=== PATIENT | male | born 1980 | race Caucasian/White ===

== ENCOUNTER 2016-08-25 09:43 | Inpatient (IN) | payer MEDICARE, OTHER ==
--- NOTE | ~2016-08-25 | CT4 ---
[facility] A Service of [facility] RADIOLOGY TEXT RESULTS PATIENT: LEXX HAND JR [address] : [birth year] UNIT #: [id number] AGE: [address]: Sharon Slade MD SEX: M ORDER DR: [id number] [facility] [address] [facility]. [place], [place] [address] [id number] I MR#: [id number] Acc #: [id number] NAME: LEXX HAND JR : 1980 SEX: M STUDY DATE/TIME: 08/25/2016 11:01 UNIT: [facility] ROOM: [facility] STUDY DESCRIPTION: CT Abd and Pelv Wo Cont Attending Physician: Ashley Anderson M.D. Ordering Physician: Cameron Lima M.D. MEDICAL IMAGING REPORT This report is preliminary unless electronic signature is present EXAM CT of the abdomen and pelvis without contrast media HISTORY Confusion. Rectal bleeding. Shortness of breath beginning today. TECHNIQUE Transaxial imaging of the abdomen and pelvis was performed without contrast media. This CT exam was performed with one or more of the following radiation dose reduction techniques: automatic exposure control, adjustment of mA and/or kV according to patient size, and iterative reconstruction. COMPARISON STUDIES The study is directly compared to the most recent examination of 07/07/2006. FINDINGS Scans through the lung bases show an infiltrate in the left lower lobe. Patient has ascites. The liver has a cirrhotic morphology with hypertrophy of the left lobe. The spleen is enlarged. The pancreas in the patient is normal. Adrenal glands are normal. Both kidneys are normal. There are multiple dilated veins over the anterior abdominal wall. There is recanalization of the umbilical vein. Pancreas has a normal appearance. There is some thickening of the right colon wall. There is ascites in the pelvis. Hinds catheter is in the bladder. There is moderate soft tissue anasarca. CONCLUSION 1. Left lower lobe infiltrate. 2. Morphologic changes of cirrhosis with portal hypertension. [facility] A Service of [facility] RADIOLOGY TEXT RESULTS PATIENT: LEXX HAND JR LOCATION: [facility]ICCU3-19 : [birth year] UNIT #: [id number] AGE: [address]: Sharon Slade MD SEX: M ORDER DR: is splenomegaly and there is recanalization of the umbilical vein and there is a large volume of ascites. 3. Diffuse soft tissue anasarca. 4. Right-sided colon wall thickening, likely related to the ascites and hypoproteinemia. 5. Relatively dense gallbladder which may represent stones or super saturation of bile. Dictated by... Max Ozuna M.D. THIS IS AN ELECTRONICALLY VERIFIED REPORT Max Ozuna M.D. at 08/29/2016 7:21 AM SHYANN/adria TD: 08/25/2016 23:31 JOB #: [id number] MEDICAL IMAGING REPORT Page 1 of 1 COPY
--- NOTE | ~2016-08-25 | TOC ---
Unit #: [id number] #: [id number] Patient: LEXX HAND JR [id number] [place] [address] [id number] I MR#: [id number] NAME: LEXX HAND JR ROOM: [facility] Age: 36 Sex: M Admission Date: 08/25/2016 : 1980 Attending Physician: Sharon Slade M.D. Referring Physician: Self Referral-Refer Use Only Primary Care Physician: No Primary Care Physician TRANSFER OF CARE SUMMARY DISCHARGE DIAGNOSES 1. Acute hypoxic respiratory failure. 2. Change in mental status secondary to hepatic encephalopathy. 3. 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 4. Cirrhosis secondary to alcohol. 5. Severe jaundice secondary to end-stage liver disease. 6. Hypovolemic shock. 7. Severe anemia secondary to acute blood loss. 8. Gastrointestinal bleed. 9. Hepatic encephalopathy. 10. Sepsis. 11. Possible spontaneous bacterial peritonitis. 12. Hypokalemia. 13. Coagulopathy secondary to liver failure. 14. Attention deficit hyperactivity disorder. 15. Acute kidney injury. The patient is not a candidate for dialysis as per Nephrology due to advanced liver disease. 16. Mild hyponatremia. 17. Hypokalemia. 18. Metabolic acidosis. 19. Hypocalcemia. 20. Severe protein malnutrition. 21. Transaminitis. 22. Abnormal thyroid stimulating hormone of 0.12. CONSULTATIONS Dr. Rueda and Dr. Bhakta. PROCEDURES None. LABORATORY DATA Hemoglobin 7.0. Sputum cultures are pending. Chest x-ray shows bilateral infiltrates. WBC 6.9, hemoglobin 6.5, platelets 74, ammonia 114. INR 1.9. Sodium 136, potassium 2.8, creatinine 2.0, CO2 18, AST 63, ALT 35, alkaline phosphatase 90, total bilirubin 25.7, albumin 1.7, phosphorous 3.9, magnesium 2.0. ABG: pH 7.45, CO2 27, oxygen 150. HOSPITALIZATION COURSE A 36-year-old with severe end-stage liver disease admitted because of change in mental status. Currently, the patient is intubated and sedated. I discussed in detail with the father. Dr. Rueda and Dr. Bhakta discussed Unit #: [id number] #: [id number] Patient: LEXX HAND JR with the father. The patient, because of end-stage liver disease and hepatorenal syndrome, who is not a candidate for dialysis secondary to end-stage renal disease, is very sick and a very poor prognosis. Father agrees for terminal extubation. The patient will be terminally extubated today as per family and father request. Very poor prognosis, discussed with the father for terminal extubation today, discussed with Dr. Rueda. Dictated by... Daynaa Coronado/damion TD: 08/26/2016 13:46 JOB #: [id number] TRANSFER OF CARE SUMMARY Page 1 of 1 X Sharon Slade MD X TRANSFER OF CARE SUMMARY
--- NOTE | ~2016-08-25 | CR6 ---
[facility] A Service of [facility] & [facility] RADIOLOGY TEXT RESULTS PATIENT: LEXX HAND JR LOCATION: [address]19 : [birth year] UNIT #: [id number] AGE: [address]: Sharon Slade MD SEX: M ORDER DR: [id number] [facility] [address]. [place], [place] [address] [id number] I MR#: [id number] Acc #: [id number] NAME: LEXX HAND JR : 1980 SEX: M STUDY DATE/TIME: 08/25/2016 17:14 UNIT: [facility] ROOM: [facility] STUDY DESCRIPTION: CR Abdomen Portable Sng View Attending Physician: Ashley Anderson M.D. Ordering Physician: Ar Moody M.D. MEDICAL IMAGING REPORT This report is preliminary unless electronic signature is present EXAM Portable abdomen HISTORY Dobbhoff tube placement. FINDINGS Portable view of the abdomen demonstrates a weighted tip of the Dobbhoff feeding tube about 18 cm below the GE junction with the distal tip in the expected mid to distal stomach. Further advancement about 10 cm to 15 cm may allow more optimal distal gastric and small bowel placement. Nonspecific bowel gas pattern with some increased colonic gas. Dictated by... Eleni Guidry M.D. THIS IS AN ELECTRONICALLY VERIFIED REPORT Eleni Guidry M.D. at 08/26/2016 6:36 PM Danny TD: 08/25/2016 22:01 JOB #: [id number] MEDICAL IMAGING REPORT Page 1 of 1 COPY
--- NOTE | ~2016-08-25 | CR72 ---
[facility] A Service of [facility] & [facility] RADIOLOGY TEXT RESULTS PATIENT: LEXX HAND JR LOCATION: [facility] [address]907-87 : [birth year] UNIT #: [id number] AGE: [address]: Ashley Anderson MD SEX: M ORDER DR: [id number] [facility] [address]. [place], [place] [address] [id number] I MR#: [id number] Acc #: [id number] NAME: LEXX HAND : 1980 SEX: M STUDY DATE/TIME: 08/25/2016 11:22 UNIT: [facility] ROOM: 27671 STUDY DESCRIPTION: CR Chest Single View Portable Attending Physician: Ashley Anderson M.D. Referring Physician: Bello Self Referred Ordering Physician: Cameron Lima M.D. Primary Care Physician: No Primary Care Physician MEDICAL IMAGING REPORT This report is preliminary unless electronic signature is present EXAM Portable chest 08/25/2016 INDICATION Respiratory failure. Patient was intubated today. COMPARISON Comparison to earlier the same day. FINDINGS A portable view of the chest was obtained. The endotracheal tube has its tip 3 cm above krista. There is faint interstitial prominence throughout both lungs with some patchy infiltrate in the left lower lobe medially. Heart size is normal and the bones are normal. IMPRESSION An endotracheal tube has been added and the patient appears to have some left lower lobe pneumonia as well as mild interstitial prominence which may be, in part, due to poor inspiration. Dictated by... Fredy Prasad M.D. THIS IS AN ELECTRONICALLY VERIFIED REPORT Fredy Prasad M.D. at 08/25/2016 3:27 PM SOLITARIO/suhail TD: 08/25/2016 13:45 JOB #: [id number] MEDICAL IMAGING REPORT Page 1 of 1 COPY
--- NOTE | ~2016-08-25 | CO ---
Unit #: [id number] #: [id number] Patient: LEXX GRANT JR [id number] [address] [place], [place] [address] [id number] I MR#: [id number] NAME: LEXX GRANT JR ROOM: [facility] Age: 36 Sex: M Admission Date: 08/25/2016 : 1980 Attending Physician: Sharon Slade M.D. Consultation Date: 08/25/2016 CONSULTATION REPORT REASON FOR CONSULTATION Altered mental status. The patient has presented with GI bleed. HISTORY OF PRESENT ILLNESS Mr. Grant is a 36-year-old white gentleman, who was intubated and sedated and no history is available at the present time. Most of the history was obtained from the patient's chart, and after talking with Dr. Anderson, and the patient's nurse. He apparently was admitted to the emergency room with altered mental status by his family; however, the patient was quite confused with shallow respiration and therefore ended up being intubated shortly after admission. He has been a heavy drinker up to 10, 24 ounce beers a day and having some lower gastrointestinal bleed of unknown duration. Upon admission, his blood pressure was 112/65. He has sinus tachycardia, and oxygen saturation 98%. His admission INR was 2.8. Ammonia 122. Hemoglobin of 8.7. The patient is deeply icteric with a bilirubin of 25. In addition, he had lactic acid of 4.5. PAST MEDICAL HISTORY Includes ADHD and admission to [facility] for alcoholic detox. He has no prior surgeries. SOCIAL HISTORY He is heavy drinker. Drinks up to 10, 24 ounce beers a day. Smokes two packs of cigarette daily. FAMILY HISTORY Not available. ALLERGIES No known drug allergies. HOME MEDICATIONS None. REVIEW OF SYSTEMS Review of organ system is not possible, because of the patient's mental status. In fact, he is intubated. PHYSICAL EXAMINATION GENERAL: He appears deeply icteric and is currently on the ventilator. VITAL SIGNS: Show a heart rate of 111, temperature 98, respiratory rate is 19, and blood pressure is 98/82. His stated weight is 159 pounds. HEENT: He has mild pallor. Deep icterus. No lymphadenopathy and grade 2 Unit #: [id number] #: [id number] Patient: YAZAN VERGARA,LEXX to 3 bilateral pitting peripheral edema. CARDIOVASCULAR: Normal heart sounds. No murmurs on auscultation. LUNGS: Reveal bilateral diminished air entry. ABDOMEN: Quite distended. The patient has massive hepatomegaly and may have underlying ascites. DIAGNOSTIC STUDIES LABORATORY RESULTS: Shows a hemoglobin of 7.6, baseline hemoglobin is 11, white count of 14,500, platelets 109. Coagulopathy with an INR of 2.8. BUN and creatinine are 24 and 2.6 indicating acute kidney injury. Potassium is 2.3 with hypokalemia, and severe intrahepatic cholestasis as evidenced by bilirubin of 25. AST, ALT, and alkaline phosphatase are 95, 51, and 149 respectively. Ammonia is 122 indicating hepatic encephalopathy. Alcohol level was 8. Urinalysis suggests urinary infection with nitrite positive. CLINICAL IMPRESSION The patient with multitude of problems related to alcoholic liver disease with associated metabolic complications. The patient with acute alcoholic hepatitis, most likely underlying cirrhosis with hepatic encephalopathy, coagulopathy, hypokalemia, severe intrahepatic cholestasis along with acute kidney injury, sepsis, urinary tract infection, metabolic acidosis, gastrointestinal bleed, ascites, massive hepatomegaly, and also acute respiratory failure, status post intubation. He is currently on Protonix and octreotide infusions getting and his own sedation. We will also give FFPs to optimize his coagulation parameters before doing any endoscopy. Also suggest to place a Dobhoff tube for lactulose therapy. The patient is encephalopathic. The overall prognosis is quite poor. Thank you for asking me to see this young man. I appreciate the consult. Dictated by... Dayana Potts/chente TD: 08/26/2016 01:08 JOB #: [id number] CONSULTATION REPORT Page 1 of 1 X Ar Moody MD X CONSULTATION REPORT
--- NOTE | ~2016-08-25 | CR72 ---
[facility] A Service of [facility] RADIOLOGY TEXT RESULTS PATIENT: LEXX HAND JR LOCATION: [address]-19 : [birth year] UNIT #: [id number] AGE: [address]: Sharon Slade MD SEX: M ORDER DR: [id number] [facility] [address]. [place], [place] [address] [id number] I MR#: [id number] Acc #: [id number] NAME: LEXX HAND JR : 1980 SEX: M STUDY DATE/TIME: 08/26/2016 5:26 UNIT: [facility] ROOM: [facility] STUDY DESCRIPTION: CR Chest Single View Portable Attending Physician: Sharon Slade M.D. Referring Physician: sorin Self Referred Ordering Physician: Shira Rueda M.D. Primary Care Physician: No Primary Care Physician MEDICAL IMAGING REPORT This report is preliminary unless electronic signature is present EXAM AP portable chest. DATE 08/26/2016 HISTORY Confusion and shortness of breath today. Symptoms have been present since 08/25/2016. Current smoker. COMPARISON AP portable chest 08/25/2016. CT chest without contrast 08/25/2016. FINDINGS Low volume inspiration. Diffuse interstitial opacities throughout both lungs with more confluent interstitial alveolar disease in the bilateral lower lobes. Airspace disease in the left lower lobe may be slightly increased. Stable mild cardiac enlargement. No definite pleural effusion or pneumothorax. Right IJ central line extends to the right upper atrial level. ET tube remains in satisfactory position in the wms-ut-blfrs thoracic trachea. NG tube extends below the diaphragm with the tip not included in the field of view. No pneumothorax is visible. IMPRESSION 1. Interval increase in alveolar disease within the left lower lobe with faint infiltrate in the right lung base. Correlate clinically for pneumonia or aspiration. 2. NG tube has been placed since the previous examination extending below the diaphragm with the tip not included in the field of view. 3. No visible pneumothorax. [facility] A Service [facility] RADIOLOGY TEXT RESULTS PATIENT: LEXX HAND JR LOCATION: [facility]3-19 : [birth year] UNIT #: [id number] AGE: [address]: Sharon Slade MD SEX: M ORDER DR: Dictated by... Angelia Bonner M.D. THIS IS AN ELECTRONICALLY VERIFIED REPORT Angelia Bonner M.D. at 08/29/2016 8:36 AM ROSALINDA/anastasiya TD: 08/26/2016 09:23 JOB #: [id number] MEDICAL IMAGING REPORT Page 1 of 1 COPY
--- NOTE | ~2016-08-25 | CT57 ---
[facility] A Service of [facility] RADIOLOGY TEXT RESULTS PATIENT: LEXX HAND JR LOCATION: [address]-19 : [birth year] UNIT #: [id number] AGE: [address]: Sharon Slade MD SEX: M ORDER DR: [id number] [facility] [address]. [place], [place] [address] [id number] I MR#: [id number] Acc #: [id number] NAME: LEXX HAND JR : 1980 SEX: M STUDY DATE/TIME: 08/25/2016 19:43 UNIT: [facility] ROOM: [facility] STUDY DESCRIPTION: CT Chest Wo Cont Attending Physician: Ashley Anderson M.D. Ordering Physician: Ashley Anderson M.D. MEDICAL IMAGING REPORT This report is preliminary unless electronic signature is present EXAM CT of the chest without contrast media HISTORY Confusion. Rectal bleeding. Shortness of breath beginning today. TECHNIQUE Transaxial imaging of the chest was performed without contrast. This CT exam was performed with one or more of the following radiation dose reduction techniques: automatic exposure control, adjustment of mA and/or kV according to patient size, and iterative reconstruction. COMPARISON STUDIES CT of the chest, abdomen and pelvis from January 2007. FINDINGS Scans through the lung parenchyma show some patchy upper lobe infiltrates on the right. There is dense consolidation in the left lower lobe. The patient is intubated with ET tube above the krista. There are enlarged submental nodes present. There is no evidence of pericardial fluid. No other lymphadenopathy is present within the mediastinum or hilum. There is no definite pleural fluid seen. Scans through the upper abdomen show ascites and chronic liver disease with splenomegaly. Nasoenteric tube is in the stomach. CONCLUSION 1. Patchy infiltrates in the right upper lobe. 2. Dense consolidation left lower lobe. 3. Enlarged submental nodes, questionable significance. The patient is intubated with ET tube above the krista. Nasoenteric tube in the stomach. 3. Manifestations of chronic liver disease with cirrhotic , splenomegaly, [facility] A Service of [facility] RADIOLOGY TEXT RESULTS PATIENT: LEXX HAND JR LOCATION: [facility]3-19 : [birth year] UNIT #: [id number] AGE: [address]: Sharon Slade MD SEX: M ORDER DR: ascites, portal hypertension. Radiodense gallbladder. Dictated by... Max Ozuna M.D. THIS IS AN ELECTRONICALLY VERIFIED REPORT Max Ozuna M.D. at 08/29/2016 7:21 AM SHYANN/adria TD: 08/25/2016 23:33 JOB #: [id number] MEDICAL IMAGING REPORT Page 1 of 1 COPY
--- NOTE | ~2016-08-25 | CR72 ---
[facility] A Service of [facility] & [facility] RADIOLOGY TEXT RESULTS PATIENT: [facility]X HAND JR [facility] [birth year] UNIT #: [id number] AGE: [address]: Sharon Slade MD SEX: M ORDER DR: [id number] [facility] [address]. [place], [place] [address] [id number] I MR#: [id number] Acc #: [id number] NAME: LEXX HAND : 1980 SEX: M STUDY DATE/TIME: 08/25/2016 14:19 UNIT: [facility] ROOM: 245[address] STUDY DESCRIPTION: CR Chest Single View Portable Attending Physician: Ashley Anderson M.D. Referring Physician: Bello Self Referred Ordering Physician: Cameron Lima M.D. Primary Care Physician: No Primary Care Physician MEDICAL IMAGING REPORT This report is preliminary unless electronic signature is present EXAM AP portable chest 08/25/2016 (1419 hours) HISTORY Repositioning of central venous catheter. TECHNIQUE AP portable chest x-ray. FINDINGS Repositioned right IJ central line tip is now in good position in the low SVC. No pneumothorax. Endotracheal tube remains in good position. Diffusely increased interstitial markings throughout both lungs, unchanged. Low lung volumes. IMPRESSION Well-positioned central venous catheter. No pneumothorax. Dictated by... Artie Perez M.D. THIS IS AN ELECTRONICALLY VERIFIED REPORT Artie Perez M.D. at 08/26/2016 1:58 PM MOMO/suhail TD: 08/25/2016 16:01 JOB #: [id number] MEDICAL IMAGING REPORT Page 1 of 1 COPY
--- NOTE | ~2016-08-25 | CO ---
Unit #: [id number] #: [id number] Patient: LEXX HAND JR [id number] [address] [address] [id number] I MR#: [id number] NAME: LEXX HAND ROOM: [address] Age: 36 Sex: M Admission Date: 08/25/2016 : 1980 Attending Physician: Ashley Anderson M.D. Primary Care Physician: Primary Care Physician No Consultation Date: 08/25/2016 CONSULTATION REPORT REASON FOR CONSULT ICU management. CHIEF COMPLAINT Altered mental status and rectal bleeding. HISTORY OF PRESENT ILLNESS This is a very unfortunate case of a 36-year-old male with past medical history significant for extensive alcohol abuse who presented to the emergency room for evaluation of altered mental status and lower GI bleed. The patient is currently intubated and there is no family at bedside. Per the ER report, the patient has been getting ill for the last few weeks but he was refusing to come to the hospital; however, earlier today he was more altered and his family noted lower GI bleed. Per the record, the patient drinks up to ten 24 ounce beers per day. Upon arrival to the ER, the patient's blood pressure was fine with normal saturation on room air but he was tachycardic and obtunded. ER physician decided to intubate him due to altered mental status and inability to protect his airway. PAST MEDICAL HISTORY 1. Extensive alcohol consumption. 2. ADHD. PAST SURGICAL HISTORY None. HOME MEDICATIONS None. ALLERGIES No known drug allergies. SOCIAL HISTORY The patient is a heavy drinker. He drinks up to ten 24 ounce beers per day. He smokes two packs of cigarettes daily. The patient is a FULL CODE. FAMILY HISTORY Unobtainable. REVIEW OF SYSTEMS Unit #: [id number] #: [id number] Patient: LEXX HAND JR Unable to obtain due to patient's condition. DIAGNOSTIC STUDIES LABORATORY: Creatinine 2.6, calcium 8.1, albumin 1.5, CO2 is 17. White blood cell count 14.5, hemoglobin 17.6, platelets 109. IMAGING: Chest x-ray concerning for bilateral infiltrate. ASSESSMENT 1. Hepatic encephalopathy. 2. Acute respiratory failure. 3. Acute kidney injury rule out hepatorenal syndrome. 4. Liver cirrhosis. 5. Coagulopathy. 6. Malnutrition. 7. Alcoholism. 8. Smoking. 9. Qscvc-so-xmwomkw anemia due to blood loss. 10. Lower gastrointestinal bleed. PLAN 1. Patient is very ill appearing and critical. His MELD score is very high due to elevated bilirubin and creatinine. 2. Will continue patient on the vent and he will likely need tracheostomy if we continue full care on this patient. 3. Will start patient on broad-spectrum antibiotics. 4. Will follow blood culture and peritoneal culture. 5. Will perform paracentesis within one to two days. 6. Will aim for a MAP of 75-85 to help with hepatorenal syndrome. 7. Will add midodrine and octreotide subcutaneous. 8. Protonix drip per Gastroenterology. 9. Blood products as needed. Patient's prognosis is very grim with likely as an outcome. Patient's only way of survival is to have a liver transplant which is impossible at this point due to active drinking. At this point, we will continue aggressive care as possible but we need to discuss with the family a code status and goal of care within the next few days. Critical care time spent on this patient is 35 minutes. Dictated by... Loi Rueda M.D. EA/derick TD: 08/25/2016 19:37 JOB #: [id number] Unit #: [id number] #: [id number] Patient: LEXX HAND JR CONSULTATION REPORT Page 1 of 1 X LOI TURNER MD X CONSULTATION REPORT
--- NOTE | ~2016-08-25 | OR ---
Unit #: [id number] #: [id number] Patient: LEXX HAND JR [id number] [address] [address] [id number] I MR#: [id number] NAME: LEXX HAND JR ROOM: [facility] Date of Procedure: 08/26/2016 Admission Date: 08/25/2016 Surgeon: Loi Rueda M.D. : 1980 Attending Physician: Sharon Slade M.D. Referring Physician: Self Referral-Refer Use Only Primary Care Physician: No Primary Care Physician PROCEDURE OPERATIVE NOTE PREOPERATIVE DIAGNOSIS Respiratory failure and liver failure. PROCEDURE PERFORMED Diagnostic and therapeutic paracentesis with ultrasound guidance. INDICATION FOR PROCEDURE Liver cirrhosis. COMPLICATIONS None. PROCEDURE An informed consent was obtained from the father after explaining the benefits and risks of this procedure. The patient was prepped and positioned appropriately, then his right abdomen site was cleaned with chlorhexidine and then with the ultrasound guidance a needle was inserted into the abdomen until ascitic fluid was obtained and a catheter was threaded over the needle. The needle was removed. Then 250 mL of clear yellowish fluid was obtained, which will be sent for culture and cytology. The catheter was removed and a bandage was applied. The patient tolerated the procedure well with no immediate complications. Dictated by... Dayana Rosario TD: 08/26/2016 13:27 JOB #: [id number] PROCEDURE OPERATIVE NOTE Page 1 of 1 X LOI TURNER MD X PROCEDURE OPERATIVE NOTE
--- NOTE | ~2016-08-25 | CR72 ---
[facility] A Service of [facility] & [facility] RADIOLOGY TEXT RESULTS PATIENT: LEXX HAND JR [facility] [id number] [birth year] UNIT #: [id number] AGE: [address]: Ashley Anderson MD SEX: M ORDER DR: [id number] [facility] [address] [facility]. [place], [place] [address] [id number] MR#: [id number] Acc #: [id number] NAME: LEXX HAND : 1980 SEX: M STUDY DATE/TIME: 08/25/2016 8:17 UNIT: [facility] ROOM: STUDY DESCRIPTION: CR Chest Single View Portable Attending Physician: Cameron Lima M.D. Ordering Physician: Cameron Lima M.D. Primary Care Physician: [facility] Family MEDICAL IMAGING REPORT This report is preliminary unless electronic signature is present EXAM Portable chest 1 view 08/25/2016 COMPARISON 07/13/2011. HISTORY Short of air for 1 day. FINDINGS Low lung volumes, submaximal aspiration. No consolidation or effusion or pneumothorax. Dictated by... Dick Wagner M.D. THIS IS AN ELECTRONICALLY VERIFIED REPORT Dick Wagner M.D. at 08/25/2016 2:58 PM TEV/sarika TD: 08/25/2016 09:24 JOB #: [id number] MEDICAL IMAGING REPORT Page 1 of 1 COPY
--- NOTE | ~2016-08-25 | HP ---
Unit #: [id number] #: [id number] Patient: LEXX HAND JR [id number] [facility]. [place], [place] [address] [id number] MR#: [id number] NAME: LEXX HAND ROOM: Age: Sex: M Admission Date: 08/25/2016 : 1980 Attending Physician: Cameron Lima M.D. Referring Physician: Bello Self Referred Primary Care Physician: No Primary Care Physician HISTORY AND PHYSICAL CHIEF COMPLAINT Altered mental status, rectal bleeding. HISTORY OF PRESENT ILLNESS The patient is a 36-year-old male with a past medical history of alcohol abuse who presented to the emergency room for evaluation of the above. History is obtained from chart review and discussion with ER staff due to the patient's altered mental status and current intubation. There is no family in the room. Will discuss with family when they are available. The patient has apparently had increasing confusion for an unknown duration. Family had tried to get him to come to the emergency room but he refused until today. He has had rectal bleeding again for an unknown duration. He is a heavy drinker. Per Our records, the patient drinks ten 24 ounce beers per day. Upon arrival in the emergency department, the patient's pulse was 114, blood pressure 112/65, oxygen saturation was 98% on room air. The patient was Essentially obtunded and was intubated. CT of the head shows nothing acute. Laboratory is notable for multiple abnormalities including INR of 2.8, ammonia of 122, hemoglobin of 8.7, white blood cell count 14.5, platelets 109, potassium 2.3. BUN and creatinine 24 and 2.6 respectively. Total bilirubin is 25.4, lactic acid of 4.5. The patient was given a Rally bag as well as octreotide and Protonix. Additionally, he was given Zosyn. He is being admitted to [facility] for evaluation and further treatment. PAST MEDICAL HISTORY 1. Admission to [facility] 10 through November 17, 2011 for alcohol detox. 2. ADHD per record review. PAST SURGICAL HISTORY None. SOCIAL HISTORY The Patient is a heavy drinker. Per record review, he drinks ten 24 ounce beers per day. Again, per record review, he smokes two packs of cigarettes daily. The patient is a Full Code per my discussion with the ER staff who spoke with the patient's father. FAMILY HISTORY Unobtainable. Unit #: [id number] #: [id number] Patient: LEXX HAND JR ALLERGIES No known allergies. HOME MEDICATIONS Unknown. REVIEW OF SYSTEMS A complete review of systems was unobtainable from the patient due to altered mental status. DIAGNOSTIC STUDIES CARDIOVASCULAR: EKG shows sinus tachycardia with a rate of 116 beats per minute. IMAGING: CT of the head shows nothing acute. Chest x-ray shows no consolidation. LABORATORY: Troponin is less than 0.05, INR is 2.8. Ammonia is 122. Complete blood count notable for white blood cell count of 14.5, hemoglobin and hematocrit 8.7 and 28.7 respectively, platelets are 109. Lactic acid 4.5. Comprehensive metabolic panel notable for sodium of 133, potassium is 2.3, BUN and creatinine 24 and 2.6 respectively, bicarb is 17, anion gap is 12. Calcium is 8.1 but corrects when albumin of 1.5 is accounted for. AST and ALT are 95 and 51 respectively. Alkaline phosphatase 149. Total bilirubin 25.4 with 13 direct and 12.4 indirect. Tylenol level is less than 10, salicylate is 10. Alcohol 8. Urine tox screen is negative. Magnesium is 2.4. Urinalysis - notable for trace leukocyte esterase, nitrate positive, bile positive. PHYSICAL EXAMINATION VITAL SIGNS: Temperature is not recorded, pulse 114, respirations 16, blood pressure 112/65. Oxygen saturation 98% on room air. GENERAL: The patient is a male who is jaundiced, currently intubated. HEENT: The sclerae are icteric. Dentition is poor. NECK: Supple. Trachea is midline. CARDIOVASCULAR: Regular rate and rhythm. LUNGS: Demonstrate scattered rhonchi. Breathing is mildly labored. ABDOMEN: Distended. Bowel sounds are decreased. NEUROLOGICAL: The patient is currently sedated. He was apparently initially moving all extremities. He was noted to have a tremor. PSYCH: Unable to assess. SKIN: The patient has severe jaundice. He also had caput medusa involving the abdomen. ASSESSMENT The patient is a 36-year-old male with: 1. Altered mental status. 2. Hepatic encephalopathy with an ammonia level of 122. Unit #: [id number] #: [id number] Patient: LEXX HAND JR 3. Acute respiratory failure. 4. Liver failure. 5. Possible spontaneous bacterial peritonitis. 6. Sepsis with an initial lactic acid of 4.5. 7. Acute kidney injury: The patient's creatinine is 2.6. It was 0.6 on August 05, 2013. 8. GI bleed: The patient received 80 mg of Protonix in the emergency department and is currently on a Protonix drip. He also received 50 mcg of octreotide and is currently on an octreotide drip. It is unknown if he has had endoscopy in the past. 9. Thrombocytopenia secondary to liver disease. The patient's platelets are 109. Platelet count was 75 on August 05, 2013. 10. Alcohol abuse. 11. Coagulopathy with an INR of 2.8 secondary to liver disease. 12. Hypokalemia. PLAN 1. Admit to ICU. 2. NPO. 3. TSH, B12 and folate. 4. Alcohol withdrawal protocol. 5. Followup results of CT abdomen and pelvis that has been previously ordered by the emergency department. 6. Check CT of the chest without contrast. 7. Blood cultures x2. 8. Sputum culture and sensitivity. 9. Procalcitonin level. 10. Duo-Nebs q.4 hours. 11. Vancomycin, Levaquin and Rocephin to cover for possible SBP and/or aspiration pneumonia pending further workup. 12. Consult Dr. Moody regarding hepatic encephalopathy, liver failure and GI bleed. 13. Consult Dr. Judd regarding acute respiratory failure and vent management. 14. Versed drip per sedation protocol. 15. Sepsis protocol with repeat lactic acid. 16. Consult Dr. Bhakta regarding acute kidney injury. 17. Strict I's and O's. 18. Urine sodium, creatinine and eosinophils. 19. Check CPK. 20. Protonix drip at 80 mg/hour. 21. Octreotide drip at 150 mcg/hour. 22. Hemoglobin and hematocrit q.6 hours. 23. Serial cardiac enzymes. 24. Check hepatitis panel and HIV. 25. Check magnesium and phosphorus levels. 26. Replace potassium. 27. Repeat labs in the morning including magnesium, phosphorus, INR and ammonia levels. 28. P.r.n. Zofran. 29. SCDs for DVT prophylaxis. Thirty-five minutes critical care time spent in the care of this patient (11 a.m. to 11:35 a.m.). Regarding code status, the patient is a Full Code. Will discuss with family when they are available. The patient has an Unit #: [id number] #: [id number] Patient: LEXX HAND JR extremely poor prognosis. Dictated by Dayana Joel/leo TD: 08/25/2016 12:11 JOB #: [id number] HISTORY AND PHYSICAL Page 1 of 1 X Ashley Anderson MD X HISTORY AND PHYSICAL
--- NOTE | ~2016-08-25 | A ---
[facility] Nutrition Therapy DATE: 08/26/16 Patient: LEXX HAND JR Physician: LANE Address: [address] [place] [address] Room/Bed: [address], Zip: [place] [address] Admit Date: 08/25/16 Date of : [birth year] Height: 5 7 Weight: 178 81 NUTRITIONAL ASSESSMENT: REASON: NPO in ICU 36 yo male admitted for AMS, hepatic encephalopathy PMH: Alcohol abuse, ADHD Anthropometrics: Ht: 5'7" Wt: 80.9 kg (178#) BMI: 27.9 Labs: K+ 2.8, BUN 26, Creat 2.0, Ca++ 7.8, Alb 1.7, AST 63, POC 122, GFR 41.4, ammonia 114 Meds: D5%, Versed, Zofran, Protonix, NaCl, KCl I/O & Bowel function: 2358/1005, last BM unknown Skin Integrity: Bruises (MAGI upper ext), abrasion (L lateral elbow) Edema: MAGI feet/leg 3+ pitting, MAGI hand/arm 2+ pitting Estimated Nutrition Needs: 0634-3327 kcal (25-30 kcal/kg) 97-121 g/kg (1.2-1.5 g/kg) Assessment: Chart reviewed, events noted. Pt is intubated in ICU. Pt currently NPO. Per RN, DHT was replaced with NGT which is on LWS d/t abdominal distension. Pt's high ammonia noted. Per chart, questionable plans for CRRT in future. See recommendations below. Dx: Inadequate oral intake RT intubation AEB NPO status. Intervention: 1. Enteral nutrition Monitoring, Evaluation and Goals: 1. Enteral nutrition; provide >80% of estimated needs and goal volume x 24 hrs 2. Weight; prevent unintentional weight loss, fluid status 3. Labs; WNL 4. GI; promote regular GI function Recommendations: 1. Once medically feasible, initiate enteral nutrition with Jevity 1.5 @ 20 mL/hr, advance 10 mL q 6 hrs to goal rate of 65 mL/hr. This will provide 2340 kcal/ 100 g protein/ 1186 mL free H2O. [facility] Nutrition Therapy DATE: 08/26/16 Patient: LEXX HAND JR Physician: LANE Address: [address] [place] [address] Room/Bed: [address], Zip: [place] [address] Admit Date: 08/25/16 Date of : [birth year] Height: 5 7 Weight: 178 81 2. If pt extubated, recommend 2 gram Na+ diet per DATA ARCHITECT MANAGER evaluation. Pt is at a moderate nutritional risk. RD will f/u per protocol. Respectfully, Nadya Alfaro, Analysis Or Research Safety Inspector Morenita Silverman RD, LD Food and Nutritional Services [facility] cc: client file
--- NOTE | ~2016-08-25 | CT71 ---
[facility] RADIOLOGY TEXT RESULTS PATIENT: LEXX HAND JR LOCATION: [facility] [address]-74 : [birth year] UNIT #: [id number] AGE: [address]: Ashley Anderson MD SEX: M ORDER DR: [id number] [facility]. [place], [place] [address] [id number] E MR#: [id number] Acc #: [id number] NAME: LEXX HAND : 1980 SEX: M STUDY DATE/TIME: 08/25/2016 8:41 UNIT: [facility] ROOM: STUDY DESCRIPTION: CT Head Wo Contrast Attending Physician: Cameron Lima M.D. Referring Physician: Self Referral-Refer Use Only Ordering Physician: Cameron Lima M.D. Primary Care Physician: Primary Care Physician No MEDICAL IMAGING REPORT This report is preliminary unless electronic signature is present EXAM CT head, noncontrast, 08/25/2016 HISTORY 36-year-old male in the ED with reported ethanol intoxication. Confusion/mental status changes, lethargy and slurred speech. TECHNIQUE CT examination of the head without IV contrast. This CT exam was performed with one or more of the following radiation dose reduction techniques: automatic exposure control, adjustment of mA and/or kV according to patient size, and iterative reconstruction. FINDINGS No acute intracranial abnormality is identified. No evidence of intracranial hemorrhage, mass, mass effect, cerebral edema or hydrocephalus. Note is made of an old medial wall left orbital blowout fracture. IMPRESSION 1. Negative noncontrast head CT. 2. Old fracture deformity related to previous medial left orbital blowout fracture. Dictated by... Artie Perez M.D. THIS IS AN ELECTRONICALLY VERIFIED REPORT Artie Perez M.D. at 08/25/2016 1:[address] [facility] RADIOLOGY TEXT RESULTS PATIENT: LEXX HAND JR LOCATION: [facility] [address]-29 : [birth year] UNIT #: [id number] AGE: [address]: Ashley Anderson MD SEX: M ORDER DR: TD: 08/25/2016 10:33 JOB #: [id number] MEDICAL IMAGING REPORT Page 1 of 1 COPY
--- NOTE | ~2016-08-25 | EKG ---
PATIENT: LEXX HAND UNIT #: [id number] Ventricular Rate: 116 BPM Atrial Rate: 116 BPM P-R Interval: 158 ms QRS Duration: 94 ms Q-T Interval: 428 ms QTC Calculation(Bezet): 594 ms P Charleston: 77 degrees Calculated R Charleston: 15 degrees Calculated T Charleston: 11 degrees Diagnosis Line: Sinus tachycardia Diagnosis Line: Cannot rule out , old Inferior infarct Diagnosis Line: Prolonged QT Diagnosis Line: Abnormal ECG Diagnosis Line: No previous ECGs available Diagnosis Line: Confirmed by LINUS GOULD MD ([id number]) on 08/26/2016 Diagnosis Line: 6:02:24 AM INTERPRETING MD: LUIS FERNANDO WINCHESTER
--- NOTE | ~2016-08-25 | CO ---
Unit #: [id number] #: [id number] Patient: LEXX HAND JR [id number] [address] [address] [id number] I MR#: [id number] NAME: LEXX HAND JR ROOM: [facility] Age: 36 Sex: M Admission Date: 08/25/2016 : 1980 Attending Physician: Sharon Slade M.D. Primary Care Physician: No Primary Care Physician Consultation Date: 08/25/2016 CONSULTATION REPORT ADDENDUM PHYSICAL EXAMINATION VITAL SIGNS: Blood pressure was systolically in the 110 to 120s without Levophed; however, I started the patient on Levophed to target a MAP of 85 for hepatorenal syndrome. GENERAL: The patient is on the vent and sedated. He is moving all his extremities to painful stimuli. NECK: Supple. No JVD. No lymphadenopathy. CHEST: Bilateral fine rhonchi, mainly at the bases, with decreased breath sounds. HEART: S1, S2. No murmurs, gallops or rubs. ABDOMEN: Very distended and tympanic to palpation. EXTREMITIES: He has +2 edema in bilateral lower extremities. SKIN: Diffuse jaundice. 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 He is not following commands, but he is moving all his extremities to painful stimuli. Dictated by... Loi Rueda M.D. EA/yolis TD: 08/30/2016 14:46 JOB #: [id number] CONSULTATION REPORT Page 1 of 1 X LOI TURNER MD CONSULTATION REPORT
--- NOTE | ~2016-08-25 | CO ---
Unit #: [id number] #: [id number] Patient: LEXX GRANT JR [id number] [address] [place], [place] [address] [id number] I MR#: [id number] NAME: LEXX GRANT JR ROOM: [facility] Age: 36 Sex: M Admission Date: 08/25/2016 : 1980 Attending Physician: Sharon Slade M.D. Primary Care Physician: Primary Care Physician No Consultation Date: 08/25/2016 CONSULTATION REPORT REASON FOR CONSULTATION Acute kidney injury. HISTORY OF PRESENT ILLNESS Mr. Grant is a 36-year-old male alcoholic, who is currently in the ER on the ventilator and on pressors and sedated and not able to give any history. Family is not present. All of the history was obtained from the chart and Dr. Anderson's H and P. The patient per the records has a history of alcohol abuse and was brought in due to mental status changes and rectal bleeding. Apparently, the family had been trying to get him into the emergency room for some time. Previous records would suggest that he was drinking ten 24 ounce beers per day at some point. He is currently on Levophed and on the ventilator. He is getting fluids and is making dark bilious colored urine. I do not know his recent p.o. intake status or whether he has had any GI upset. No respiratory distress on the ventilator. PAST MEDICAL HISTORY Significant for alcohol abuse, ADHD. PAST SURGICAL HISTORY None. CURRENT MEDICATIONS Per the MAR are as follows; Levophed drip. He is getting 4 units of FFP, lactulose 30 mL per tube every 6 hours, D5 normal saline at 150 mL an hour, DuoNeb inhaler, banana bag daily, Protonix drip, octreotide drip, Rocephin 2 g IV daily, Levaquin 750 mg IV q.24, potassium chloride runs, vancomycin per pharmacy dosing, and Zofran p.r.n. ALLERGIES He has no known drug allergies. FAMILY HISTORY Not known. SOCIAL HISTORY Not known other than him being a heavy drinker according to old records. He is a full code. REVIEW OF SYSTEMS A complete 12-point review of systems was attempted, but was simply unable to be obtained with the patient being sedated on the ventilator. Unit #: [id number] #: [id number] Patient: LEXX GRANT JR PHYSICAL EXAMINATION VITAL SIGNS: Temperature is 97.5, pulse 112, respiratory rate 22, blood pressure 109/61 and low blood pressure 91/48. GENERAL: This is a 36-year-old male, sedated on the vent. HEENT: Head is atraumatic and normocephalic. Eyes show pale conjunctivae with scleral icterus. No nasal drainage or nosebleed. The patient is orally intubated. NECK: Shows no rigidity, no JVD. HEART: Tachycardic and regular with no murmur or rub appreciated. LUNGS: Have coarse breath sounds bilaterally with no wheezing. Breathing is nonlabored on the vent with FiO2 of 40%. ABDOMEN: Distended, soft with hypoactive bowel sounds. No rebound or guarding noted. He is noted to have a venous redistribution on his abdomen. EXTREMITIES: No lower extremity clubbing or cyanosis. He has 1+ pitting edema below the knees bilaterally. SKIN: Dry with jaundice noted. GENITOURINARY: Hinds catheter is in place with dark bilious urine. MUSCULOSKELETAL: No joint effusions noted. LYMPHATIC: There is no neck or cervical lymphadenopathy. PSYCHIATRIC: Deferred. NEUROLOGIC: Deferred. DIAGNOSTIC STUDIES IMAGING STUDIES: Chest x-ray was noted with some pneumonia and interstitial prominence. CT of the head was negative. There is no previous kidney imaging. LABORATORY RESULTS: Procalcitonin was 1. Phosphorus and Mag were normal. CK level 168, troponin negative. HIV screen negative. Hemoglobin this afternoon was 7.6. ABG; pH of 7.38, pCO2 28, PO2 121, bicarb of 17. UA showed trace leukocyte esterase with nitrite positive urine and a few red blood cells. Urine drug screen was negative. Chemistry this morning; sodium was 133, potassium 2.3, chloride 104, bicarb of 17 for an anion gap of 12, glucose 129, BUN 24, creatinine 2.6, calcium was 8.1, AST and ALT were high at 95 and 51 respectively with a total bilirubin of 25, albumin was just 1.5. Tylenol was negative. Salicylate was 10. Alcohol was 8. Lactic acid was 4.5. White count 14.5, platelet counts just 109 with a left differential. Ammonia was 122. INR 2.8. Prior creatinine before this one was 0.6 in 07/2013. ASSESSMENT AND PLAN 1. Acute kidney injury. This looks to be hepatorenal syndrome plus additional sepsis syndrome and hypotension. Supportive care is in place with fluids and blood pressure support. With his alcoholism and liver failure, he is not a dialysis candidate, as he would not be eligible for a liver transplant. 2. Hypokalemia. This is being replaced and a magnesium level was okay. I will have them call us with the repeat potassium level after the potassium runs are done. 3. Alcoholic hepatitis. The liver team is seeing and he has been placed on an octreotide and Protonix drip. He is getting FFP for his coagulopathy. 4. Hypotension. The patient's blood pressure is now doing better with Unit #: [id number] #: [id number] Patient: LEXX GRANT JR fluids and Levophed. 5. Sepsis syndrome on broad-spectrum antibiotics to cover pneumonia. 6. Gastrointestinal bleed. 7. Hepatic encephalopathy with elevated pneumonia. 8. With poor synthetic function and low albumin and elevated INR. The patient's prognosis is very very poor and he will likely not survive this illness. Again, no family is present. I would like to thank Dr. Anderson for this consult and the opportunity to participate in evaluation and care of Mr. Grant. Dictated by... Lux Bhakta Jr., MbAdifatah. NESSA/chente TD: 08/26/2016 07:04 JOB #: [id number] CONSULTATION REPORT Page 1 of 1 X Lux Bhakta MD X CONSULTATION REPORT
--- NOTE | ~2016-08-25 | CR72 ---
[facility] A Service of [facility] & [facility] RADIOLOGY TEXT RESULTS PATIENT: LEXX HAND JR LOCATION: [facility]19 : [birth year] UNIT #: [id number] AGE: [address]: Sharon Slade MD SEX: M ORDER DR: [id number] [facility] [address] [facility]. [place], [place] [address] [id number] I MR#: [id number] Acc #: [id number] NAME: LEXX HAND : 1980 SEX: M STUDY DATE/TIME: 08/25/2016 12:57 UNIT: [facility] ROOM: 02464 STUDY DESCRIPTION: CR Chest Single View Portable Attending Physician: Ashley Anderson M.D. Referring Physician: Bello Self Referred Ordering Physician: Ed Shaun Pozo M.D. Primary Care Physician: No Primary Care Physician MEDICAL IMAGING REPORT This report is preliminary unless electronic signature is present EXAM Portable chest radiograph. INDICATION Central line placement FINDINGS Comparison made to prior exam from earlier today. Since the prior study, a right internal jugular vein central venous line has been placed. It does appear to extend into the right ventricle. I would suggest withdrawing this catheter by about 5-6 cm. Endotracheal tube terminates above the level of the krista. Cardiomegaly is present. There is some diffuse interstitial prominence and overall lung volumes are diminished. No pneumothorax or pleural effusion is seen. Dictated by... Angeles Beltrán M.D. THIS IS AN ELECTRONICALLY VERIFIED REPORT Angeles Beltrán M.D. at 08/27/2016 2:12 PM AFF/tmw TD: 08/25/2016 14:08 JOB #: [id number] MEDICAL IMAGING REPORT Page 1 of 1 COPY
[2016-08-25 08:28] LABS: POC - CKMB 1.3 ng/mL (0.0-7.9); POC - TROPONIN <0.05 ng/mL (<=0.05)
[2016-08-25 08:45] LABS: BASOPHIL# 0.1 X10e3 (0-0.3); BASOPHIL% 0.4 % (0-2.5); HEMATOCRIT 28.7 % (38.0-50.0); HEMOGLOBIN 8.7 gm/dL (13.0-16.0); LYMPHOCYTE# 0.4 X10e3 (1.0-3.5); LYMPHOCYTE% 2.5 % (17.0-45.0); MEAN CELL VOLUME 88.4 FL (83-96); MEAN CORPUSCULAR HGB CONC 30.5 g/dL (30-36); MEAN PLATELET VOLUME 9.5 FL (6.5-11.5); MONOCYTE# 2.2 X10e3 (0-1.0); NEUTROPHIL# 11.9 X10e3 (1.5-7.1); NEUTROPHIL% 82.1 % (40-75); RED BLOOD COUNT 3.24 X10e (3.90-5.60); RED CELL DISTRIBUTION WIDTH 24.2 % (11.0-15.5); WHITE BLOOD COUNT 14.5 X10e3 (4.0-10.5)
[2016-08-25 08:51] LABS: INR 2.8; PROTHROMBIN TIME (PATIENT) 30.8 SECONDS (9.6-11.5)
[2016-08-25 09:12] LABS: DIFF IND YES; PLATELET COUNT 109 X10e3 (140-420)
[2016-08-25 09:20] LABS: PLATELET ESTIMATE DECREASED (NORMAL); POIKILOCYTOSIS SL; RBC NORMAL YES
[2016-08-25 09:21] LABS: TARGET CELLS SL
[2016-08-25 09:22] LABS: POLYCHROMASIA SL
[2016-08-25 09:27] LABS: ALBUMIN SERUM 1.5 g/dL (3.5-5.0); ALCOHOL BLOOD 8 mg/dL (0); ALKALINE PHOSPHATASE 149 U/L (32-92); ALT (SGPT) 51 U/L (10-40); AST (SGOT) 95 U/L (10-42); BILIRUBIN,TOTAL 25.4 mg/dL (0.2-2.0); BLOOD UREA NITROGEN 24 mg/dL (9-23); BUN/CREATININE RATIO 9.23; CALCIUM SERUM 8.1 mg/dL (8.4-10.2); CARBON DIOXIDE 17 mmol/L (22-31); CHLORIDE 104 mmol/L (100-111); CREATININE SERUM 2.6 mg/dL (0.6-1.4); GLOM FILT RATE Estimated 30.2 mL/min (>60); GLUCOSE FASTING 129 mg/dL (70-110); PROTEIN TOTAL SERUM 6.7 g/dL (6.0-8.3); SODIUM 133 mmol/L (135-145)
[2016-08-25 09:30] LABS: ACETAMINOPHEN <10 ug/mL; BILIRUBIN,INDIRECT 12.4 mg/dL (0.0-0.9); POTASSIUM 2.3 mmol/L (3.5-5.1)
[2016-08-25 10:14] LABS: URINE SOURCE CLEAN CATCH
[2016-08-25 10:35] LABS: AMPHETAMINE NEG (NEG); BARBITURATES NEG (NEG); BENZODIAZEPINES NEG (NEG); COCAINE NEG (NEG); MARIJUANA NEG (NEG); OPIATES NEG (NEG); TRICYCLIC ANTIDEPRESSANTS NEG (NEG); U METHADONE NEG (NEG)
[2016-08-25 10:47] LABS: URBCS1 AUWI 0-2 /[HPF] (0-2); URINE APPEARANCE CLOUDY; URINE BACTERIA AUWI NEG (NEGATIVE); URINE BLOOD NEG (NEG); URINE COLOR DK YELLOW; URINE GLUCOSE NEG (NEG); URINE KETONE TRACE (NEG); URINE LEUKOCYTE ESTERASE TRACE (NEG); URINE NITRATE POS (NEG); URINE PH 6.5 (5-8); URINE PROTEIN NEG (NEG); URINE SPECIFIC GRAVITY 1.014 (1.003-1.035); URINE SQUAMOUS EPITHELIAL CELL NONE SEEN /[HPF]; UWBCS1 AUWI 0-2 (0-5)
[2016-08-25 10:52] LABS: CULTURE INDICATED? NO; URINE BILIRUBIN POS (NEG)
[2016-08-25 12:48] LABS: ARTERIAL BLD GAS O2 SATURATION 97.3 % (90.0-100.0); ARTERIAL BLOOD GAS CARBOXY HB 1.4 %sat (0.0-9.0); ARTERIAL BLOOD GAS HCO3 17.3 mmol/L; ARTERIAL BLOOD GAS MET HB 0.4 %sat (0.0-2.0); ARTERIAL BLOOD GAS PCO2 28.9 mmHg (35.0-45.0); ARTERIAL BLOOD GAS pH 7.385 (7.350-7.450)
[2016-08-25 12:49] LABS: ARTERIAL BLOOD GAS ALLEN TEST NORMAL; ARTERIAL BLOOD GAS ART SITE RIGHT RADIAL; ARTERIAL BLOOD GAS DELIVERY VENT; ARTERIAL BLOOD GAS VENT MODE A/C; ARTERIAL DRAW? YES
[2016-08-25 13:18] LABS: HEMOGLOBIN 7.6 gm/dL (13.0-16.0)
[2016-08-25 13:29] LABS: MAGNESIUM 2.5 mg/dL (1.6-3.0); PHOSPHOROUS 4.6 mg/dL (2.5-4.6)
[2016-08-25 13:48] LABS: MB 3.3 ng/ml
[2016-08-25 14:02] LABS: FOLATE (FOLIC ACID) >23.6 ng/mL (>5.8)
[2016-08-25 19:13] LABS: HEMATOCRIT 22.2 % (38.0-50.0)
[2016-08-25 19:19] LABS: HEMOGLOBIN 6.9 gm/dL (13.0-16.0)
[2016-08-25 19:36] LABS: %MB 2.6 % (0.0-4.0); MB 3.3 ng/ml
[2016-08-25 21:25] LABS: BASOPHIL% 0.3 % (0-2.5); EOSINOPHIL% 0.3 % (0.0-7.0); HEMOGLOBIN 7.7 gm/dL (13.0-16.0); LYMPHOCYTE# 0.6 X10e3 (1.0-3.5); LYMPHOCYTE% 6.2 % (17.0-45.0); MEAN CORPUSCULAR HEMOGLOBIN 27.6 PG (28-34); MEAN PLATELET VOLUME 9.4 FL (6.5-11.5); MONOCYTE# 1.5 X10e3 (0-1.0); MONOCYTE% 15.4 % (3.0-12.0); NEUTROPHIL# 7.7 X10e3 (1.5-7.1); NEUTROPHIL% 77.8 % (40-75); PLATELET COUNT 84 X10e3 (140-420); RED BLOOD COUNT 2.81 X10e (3.90-5.60); RED CELL DISTRIBUTION WIDTH 23.6 % (11.0-15.5)
[2016-08-25 21:27] LABS: DIFF IND NO
[2016-08-25 21:54] LABS: ALBUMIN SERUM 1.2 g/dL (3.5-5.0); BUN/CREATININE RATIO 12.38; CALCIUM SERUM 7.3 mg/dL (8.4-10.2); CREATININE SERUM 2.1 mg/dL (0.6-1.4); MAGNESIUM 2.3 mg/dL (1.6-3.0); PHOSPHOROUS 4.1 mg/dL (2.5-4.6); PROTEIN TOTAL SERUM 5.5 g/dL (6.0-8.3)
[2016-08-25 21:56] LABS: POTASSIUM 2.6 mmol/L (3.5-5.1)
[2016-08-26 00:29] LABS: CREATININE,RANDOM URINE 97 mg/dL
[2016-08-26 00:31] LABS: SODIUM URINE RANDOM <10 mmol/L
[2016-08-26 01:29] LABS: INR 1.8; PROTHROMBIN TIME (PATIENT) 19.5 SECONDS (9.6-11.5)
[2016-08-26 04:48] LABS: ARTERIAL BLD GAS O2 SATURATION 97.4 % (90.0-100.0); ARTERIAL BLOOD GAS CARBOXY HB 1.6 %sat (0.0-9.0); ARTERIAL BLOOD GAS HCO3 19.4 mmol/L; ARTERIAL BLOOD GAS MET HB 1.1 %sat (0.0-2.0); ARTERIAL BLOOD GAS PCO2 27.4 mmHg (35.0-45.0); ARTERIAL BLOOD GAS pH 7.458 (7.350-7.450)
[2016-08-26 04:51] LABS: ARTERIAL BLOOD GAS ALLEN TEST NORMAL; ARTERIAL BLOOD GAS ART SITE LEFT RADIAL; ARTERIAL BLOOD GAS DELIVERY VENT; ARTERIAL BLOOD GAS VENT MODE PRVC; ARTERIAL DRAW? YES
[2016-08-26 05:57] LABS: BASOPHIL% 0.2 % (0-2.5); EOSINOPHIL# 0.1 X10e3 (0-0.7); EOSINOPHIL% 1.7 % (0.0-7.0); HEMATOCRIT 20.8 % (38.0-50.0); LYMPHOCYTE# 0.6 X10e3 (1.0-3.5); LYMPHOCYTE% 8.9 % (17.0-45.0); MEAN CELL VOLUME 90.6 FL (83-96); MEAN CORPUSCULAR HEMOGLOBIN 28.1 PG (28-34); MEAN PLATELET VOLUME 9.6 FL (6.5-11.5); MONOCYTE# 1.2 X10e3 (0-1.0); MONOCYTE% 17.7 % (3.0-12.0); NEUTROPHIL# 4.9 X10e3 (1.5-7.1); NEUTROPHIL% 71.5 % (40-75); PLATELET COUNT 74 X10e3 (140-420); RED CELL DISTRIBUTION WIDTH 23.6 % (11.0-15.5); WHITE BLOOD COUNT 6.8 X10e3 (4.0-10.5)
[2016-08-26 06:10] LABS: HEMOGLOBIN 6.5 gm/dL (13.0-16.0)
[2016-08-26 06:11] LABS: DIFF IND YES
[2016-08-26 06:12] LABS: ALBUMIN SERUM 1.7 g/dL (3.5-5.0); CALCIUM SERUM 7.8 mg/dL (8.4-10.2); GLOM FILT RATE Estimated 41.4 mL/min (>60); PHOSPHOROUS 3.9 mg/dL (2.5-4.6); PROTEIN TOTAL SERUM 5.7 g/dL (6.0-8.3)
[2016-08-26 06:14] LABS: BILIRUBIN,TOTAL 25.7 mg/dL (0.2-2.0); POTASSIUM 2.8 mmol/L (3.5-5.1)
[2016-08-26 06:24] LABS: INR 1.9; PROTHROMBIN TIME (PATIENT) 20.9 SECONDS (9.6-11.5)
[2016-08-26 07:13] LABS: PLATELET ESTIMATE DECREASED (NORMAL)
[2016-08-26 07:14] LABS: HYPOCHROMIA SL; TARGET CELLS SL
[2016-08-26 07:15] LABS: POLYCHROMASIA SL
[2016-08-26 10:18] LABS: HEMATOCRIT 22.9 % (38.0-50.0)
[2016-08-29 08:27] LABS: HA AB IGM (HEPPAN) Nonreactive (()); HB CORE AB IGM (HEPPAN) Nonreactive (Nonreactive); HB S AG (HEPPAN) Nonreactive (Nonreactive); HEP C AB (HEPPAN) Nonreactive (Nonreactive); HEP C AB SIGNAL TO CUTOFF 0.17 ratio (<1.00)
== END 2016-08-26 21:30 | disposition expired | DRG 871 ==
LOC: CED 09:43 → CEDOF 11:25 → CICCU3 20:07
PROVIDERS: Emergency Medicine; Family Medicine; Internal Medicine Gastroenterology
PROC: 0BH17EZ Insertion of Endotracheal Airway into Trachea, Via Natural or Artificial Opening (ICD-10-PCS; principal; 2016-08-25)
PROC: 5A1945Z Respiratory Ventilation, 24-96 Consecutive Hours (ICD-10-PCS; 2016-08-25)
PROC: 05HM33Z Insertion of Infusion Device into Right Internal Jugular Vein, Percutaneous Approach (ICD-10-PCS; 2016-08-25)
PROC: 30233L1 Transfusion of Nonautologous Fresh Plasma into Peripheral Vein, Percutaneous Approach (ICD-10-PCS; 2016-08-25)
PROC: 30233K1 Transfusion of Nonautologous Frozen Plasma into Peripheral Vein, Percutaneous Approach (ICD-10-PCS; 2016-08-25)
PROC: 0W9G30Z Drainage of Peritoneal Cavity with Drainage Device, Percutaneous Approach (ICD-10-PCS; 2016-08-26)
PROC: 30233N1 Transfusion of Nonautologous Red Blood Cells into Peripheral Vein, Percutaneous Approach (ICD-10-PCS; 2016-08-26)
DX: A41.9 Sepsis, unspecified organism (principal); J96.00 Acute respiratory failure, unspecified whether with hypoxia or hypercapnia; K76.7 Hepatorenal syndrome; R57.1 Hypovolemic shock; J18.9 Pneumonia, unspecified organism; N17.9 Acute kidney failure, unspecified; D69.6 Thrombocytopenia, unspecified; E87.2 Acidosis; D62 Acute posthemorrhagic anemia; K92.2 Gastrointestinal hemorrhage, unspecified; N39.0 Urinary tract infection, site not specified; K72.90 Hepatic failure, unspecified without coma; E87.6 Hypokalemia; F90.9 Attention-deficit hyperactivity disorder, unspecified type; F10.20 Alcohol dependence, uncomplicated; K70.11 Alcoholic hepatitis with ascites; K70.31 Alcoholic cirrhosis of liver with ascites; Z66 Do not resuscitate; Z51.5 Encounter for palliative care
CPT/HCPCS: 36415; 36600; 70450; 71010; 71250; 74000; 74176; 80048; 80053; 80074; 80076; 80202; 80307; 81003; 82140; 82308; 82550; 82553; 82570; 82607; 82746; 82803; 82947; 83605; 83735; 84100; 84132; 84300; 84443; 84484; 85014; 85018; 85025; 85610; 86850; 86900; 86901; 86923; 87040; 87070; 87077; 87086; 87186; 87205; 87806; 89190; 93005; 94002; 94003; 94640; 94760; 94761; 96365; 99291; 99292; C9113; G0480; J0330; J0696; J1956; J2060; J2270; J2354; J2543; J3370; J3411; J3475; P9016; P9059